=== PATIENT | female | born 1970 | race Two or more races ===

== ENCOUNTER 2018-02-22 13:10 | Day surgery (SDC) | payer BC ==
[2018-02-22] MEDS ORDERED: FENTAnyl 50 MCG/ML VIAL (15:47)
[2018-02-22] MEDS ORDERED: PROPOFOL 40 ML (15:47)
== END 2018-02-22 19:26 | disposition home or self-care (01) ==
LOC: GIL 13:10
DX: K21.0 Gastro-esophageal reflux disease with esophagitis (principal); K31.7 Polyp of stomach and duodenum
CPT/HCPCS: 43239; 84703; 88305